=== PATIENT | female | born 1960 | race African-American/Black ===

== ENCOUNTER → 2017-02-02 | Outpatient (CLI) | payer BC ==
[2017-02-02 13:10] LABS: Basophils # (auto) 0 uL; Basophils % (auto) 0.4 % (0.0-2.0); Eosinophils # (auto) 0.1 uL; Eosinophils % (auto) 1.3 % (0.0-7.0); Hematocrit 39.7 % (36.0-46.0); Hemoglobin 12.9 g/dL (12.2-16.2); Lymphocytes # (auto) 2.9 uL; Lymphocytes % (auto) 46.2 % (10.0-50.0); Mean Corpuscular Hemoglobin 28.1 pg (28.0-32.0); Mean Corpuscular Hgb Conc. 32.4 g/dL (32.0-36.0); Mean Corpuscular Volume 86.9 fL (80.0-100.0); Monocytes # (auto) 0.4 uL; Monocytes % (auto) 5.6 % (0.0-12.0); Neutrophils # (auto) 2.9 uL; Neutrophils % (auto) 46.5 % (37.0-80.0); Platelet Count (auto) 332 10^3/uL (140-450); Red Cell Distribution Width 15.1 % (11.6-16.0); White Blood Cell 6.3 10^3/uL (4.4-10.8)
[2017-02-02 13:30] LABS: Albumin 4.4 g/dL (3.4-5.0); BUN/Creatinine Ratio 19.8; Bilirubin, Total 0.4 mg/dL (0.2-1.0); Calcium 9.4 mg/dL (8.5-10.1); Potassium 3.7 mmol/L (3.5-5.1); Total Protein 8.1 g/dL (6.4-8.2)
== END | disposition home or self-care (01) ==
LOC: LAB 12:27
PROVIDERS: ATTEND Internal Medicine
DX: E11.9 Type 2 diabetes mellitus without complications (principal); M65.2 Calcific tendinitis
CPT/HCPCS: 36415; 80053; 80061; 82607; 84439; 84443; 85025; 85652; 86141; 86225; 86235

== ENCOUNTER → 2017-03-15 | Outpatient (CLI) | payer BC ==
[2017-03-15 10:37] LABS: INR 0.92 (0.9-1.15); Partial Thromboplastin Time 26.6 sec (22.64-33.71)
== END | disposition home or self-care (01) ==
LOC: LAB 09:50
PROVIDERS: ATTEND Internal Medicine
DX: R76.8 Other specified abnormal immunological findings in serum (principal); E11.9 Type 2 diabetes mellitus without complications
CPT/HCPCS: 36415; 83036; 85610; 85730; 86431

== ENCOUNTER 2017-06-01 14:24 | Emergency (ER) | payer BC ==
[~2017-06-01] VITALS: Ht 172.7 cm; Wt 77.1 kg
[2017-06-01] MEDS ORDERED: SODIUM CHLORIDE 0.9% 1,000 ML IV ONE (15:12)
[2017-06-01] MEDS ORDERED: KETOROLAC TROMETH 30 MG/ML 1ML VIAL IM ONE (15:15)
[2017-06-01] MEDS ORDERED: ASPirin 81 mg TAB PO ONE (15:15)
[2017-06-01 15:34] LABS: Basophils # (auto) 0 uL; Basophils % (auto) 0.3 % (0.0-2.0); CONDITION Y; Eosinophils # (auto) 0 uL; Eosinophils % (auto) 0.4 % (0.0-7.0); Hematocrit 39.6 % (36.0-46.0); Hemoglobin 13.1 g/dL (12.2-16.2); Lymphocytes # (auto) 2.7 uL; Lymphocytes % (auto) 34.6 % (10.0-50.0); Mean Corpuscular Hemoglobin 28.3 pg (28.0-32.0); Mean Corpuscular Volume 85.6 fL (80.0-100.0); Mean Platelet Volume 7.9 fL (7.4-10.4); Monocytes # (auto) 0.5 uL; Monocytes % (auto) 6.3 % (0.0-12.0); Neutrophils # (auto) 4.5 uL; Neutrophils % (auto) 58.4 % (37.0-80.0); Platelet Count (auto) 337 10^3/uL (140-450); Red Cell Distribution Width 14.8 % (11.6-16.0); White Blood Cell 7.8 10^3/uL (4.4-10.8)
[2017-06-01 15:59] LABS: Albumin 4.1 g/dL (3.4-5.0); Alkaline Phosphatase 76 U/L (45-117); Anion Gap 7 (5-15); Aspartate Aminotransferase 12 U/L (15-37); BUN/Creatinine Ratio 24.1; Bilirubin, Total 0.3 mg/dL (0.2-1.0); Blood Urea Nitrogen 20 mg/dL (7-18); Calcium 9.4 mg/dL (8.5-10.1); Carbon Dioxide 29 mmol/L (21-32); Chloride 105 mmol/L (98-107); GFR African American 92 mL/min; GFR Non-African American 76 mL/min; Glucose 93 mg/dL (74-106); Potassium 3.9 mmol/L (3.5-5.1); Sodium 141 mmol/L (136-145); Total Protein 7.9 g/dL (6.4-8.2)
[2017-06-01] MEDS ORDERED: IOHEXOL 350 MG/ML 100ML IJ ONE (16:09)
[2017-06-01 16:50] VITALS: BP 135/64
== END 2017-06-01 17:40 | disposition home or self-care (01) ==
LOC: ER 14:24
DX: R07.89 Other chest pain (principal); Z88.1 Allergy status to other antibiotic agents
CPT/HCPCS: 36415; 71020; 71275; 80053; 83735; 84484; 85025; 85379; 93005; 94761; 96360; 96372; 99285; J1885; J7030; Q9967

== ENCOUNTER 2017-06-05 17:31 | Inpatient (IN) | payer BC ==
[~2017-06-05] VITALS: Ht 172.7 cm; Wt 77.9 kg
[2017-06-05] MEDS ORDERED: ASPirin 81 mg TAB PO ONE (18:15)
[2017-06-05 18:16] LABS: Basophils # (auto) 0 uL; Basophils % (auto) 0.3 % (0.0-2.0); CONDITION Y; Eosinophils # (auto) 0 uL; Eosinophils % (auto) 0.6 % (0.0-7.0); Hemoglobin 13.1 g/dL (12.2-16.2); Lymphocytes # (auto) 3.5 uL; Lymphocytes % (auto) 40.7 % (10.0-50.0); Mean Corpuscular Hemoglobin 28.4 pg (28.0-32.0); Mean Corpuscular Hgb Conc. 32.8 g/dL (32.0-36.0); Mean Corpuscular Volume 86.7 fL (80.0-100.0); Monocytes # (auto) 0.5 uL; Monocytes % (auto) 5.4 % (0.0-12.0); Neutrophils # (auto) 4.5 uL; Platelet Count (auto) 353 10^3/uL (140-450); Red Cell Distribution Width 14.4 % (11.6-16.0); White Blood Cell 8.5 10^3/uL (4.4-10.8)
[2017-06-05 18:17] LABS: Albumin 4.4 g/dL (3.4-5.0); Anion Gap 8 (5-15); Aspartate Aminotransferase 15 U/L (15-37); Blood Urea Nitrogen 17 mg/dL (7-18); Carbon Dioxide 27 mmol/L (21-32); Chloride 107 mmol/L (98-107); GFR African American 95 mL/min; GFR Non-African American 78 mL/min; Glucose 86 mg/dL (74-106); Magnesium 2.6 mg/dL (1.6-2.6); Sodium 142 mmol/L (136-145)
[2017-06-05 18:22] LABS: Alkaline Phosphatase 82 U/L (45-117); Bilirubin, Total 0.3 mg/dL (0.2-1.0); Total Protein 8.2 g/dL (6.4-8.2)
[2017-06-05 18:47] LABS: INR 0.98 (0.9-1.15); Partial Thromboplastin Time 26.8 sec (22.64-33.71); Prothrombin Time 10.7 sec (9.37-12.3)
[2017-06-05] MEDS ORDERED: KETOROLAC TROMETH 30 MG/ML 1ML VIAL IV ONE (19:45)
[2017-06-05] MEDS ORDERED: MORPHINE SULF INJ 2 MG/ML SYRINGE 1ML IV PRN (20:00)
[2017-06-05] MEDS ORDERED: ONDANSETRON HCL 4 MG/2 ML VIAL IV PRN (20:00)
[2017-06-05] MEDS ORDERED: LORazepam 0.5 MG TAB PO PRN (20:00)
[2017-06-05] MEDS ORDERED: HYDROcodone-ACET 5/325MG TAB PO PRN (20:00)
[2017-06-05] MEDS ORDERED: ACETAMINOPHEN 500 MG TAB PO PRN (20:00)
[2017-06-05] MEDS ORDERED: TEMAZEPAM 15 MG CAP PO PRN (20:15)
[2017-06-05 20:50] LABS: Cholesterol 180 mg/dL (< 200); HDL Cholesterol 61 mg/dL (40-59); LDL Cholesterol 99 mg/dL (< 100); Triglycerides 170 mg/dL (< 150)
[2017-06-05] MEDS: MORPHINE SULF INJ 2 MG/ML SYRINGE 1ML IV PRN (21:14)
[2017-06-05 22:00] VITALS: BP 147/79
[2017-06-05] MEDS: ATORVASTATIN 20 MG TAB PO SCH (22:34)
[2017-06-05 23:52] VITALS: BP 147/79
[2017-06-06 05:00] VITALS: BP 130/67
[2017-06-06 06:21] LABS: Basophils # (auto) 0 uL; Basophils % (auto) 0.6 % (0.0-2.0); CONDITION Y; Eosinophils # (auto) 0.1 uL; Eosinophils % (auto) 1.2 % (0.0-7.0); Hematocrit 39.3 % (36.0-46.0); Hemoglobin 12.9 g/dL (12.2-16.2); Lymphocytes # (auto) 3.1 uL; Lymphocytes % (auto) 43.3 % (10.0-50.0); Mean Corpuscular Hemoglobin 28.6 pg (28.0-32.0); Mean Corpuscular Hgb Conc. 32.8 g/dL (32.0-36.0); Mean Corpuscular Volume 87.1 fL (80.0-100.0); Mean Platelet Volume 7.8 fL (7.4-10.4); Monocytes # (auto) 0.5 uL; Monocytes % (auto) 6.7 % (0.0-12.0); Neutrophils # (auto) 3.5 uL; Neutrophils % (auto) 48.2 % (37.0-80.0); Platelet Count (auto) 312 10^3/uL (140-450); White Blood Cell 7.3 10^3/uL (4.4-10.8)
[2017-06-06 06:40] LABS: Chloride 108 mmol/L (98-107); Sodium 142 mmol/L (136-145)
[2017-06-06 06:49] LABS: Anion Gap 9 (5-15); BUN/Creatinine Ratio 24.4; Blood Urea Nitrogen 19 mg/dL (7-18); Calcium 8.7 mg/dL (8.5-10.1); Carbon Dioxide 25 mmol/L (21-32); GFR African American 99 mL/min; GFR Non-African American 82 mL/min; Glucose 112 mg/dL (74-106)
[2017-06-06 09:00] VITALS: BP 137/68
[2017-06-06] MEDS: MORPHINE SULF INJ 2 MG/ML SYRINGE 1ML IV PRN (09:38)
[2017-06-06 10:45] LABS: Urine Bilirubin Negative (Negative); Urine Blood Negative /uL (Negative); Urine Color Yellow (Yellow); Urine Glucose Normal (Normal); Urine Ketone Negative (Negative); Urine Mucus FEW (None Seen); Urine Nitrite Negative (Negative); Urine RBC 1 /hpf (0 - 4); Urine Squamous Epithelial Cell FEW /hpf (<5); Urine Urobilinogen Normal (Negative); Urine pH 5.5 (5.0-8.0)
[2017-06-06] MEDS ORDERED: BACLOFEN 10 MG TAB PO ONE (11:15)
[2017-06-06] MEDS ORDERED: ALPRAZolam 0.25 MG TAB PO ONE (11:15)
[2017-06-06] MEDS ORDERED: cefTRIAXone 1GM/50ML D5W 50 ML IV ONE (11:15)
[2017-06-06] MEDS: ASPirin-EC 81 mg tab PO SCH (11:17)
[2017-06-06 13:00] VITALS: BP 126/71
[2017-06-06] MEDS: KETOROLAC TROMETH 30 MG/ML 1ML VIAL IV SCH ×3 (13:21→23:41)
[2017-06-06] MEDS: NITROGLYCERIN 0.4 MG SL TAB SL PRN ×3 (16:09→16:20)
[2017-06-06 17:16] VITALS: BP 115/53
[2017-06-06 21:41] VITALS: BP 109/50
[2017-06-06] MEDS: ATORVASTATIN 20 MG TAB PO SCH (21:47)
[2017-06-06] MEDS: ALPRAZolam 0.25 MG TAB PO SCH (21:47)
[2017-06-07 04:48] VITALS: BP 115/62
[2017-06-07] MEDS: KETOROLAC TROMETH 30 MG/ML 1ML VIAL IV SCH ×3 (05:38→18:00)
[2017-06-07] MEDS: MORPHINE SULF INJ 2 MG/ML SYRINGE 1ML IV PRN ×2 (06:30→21:40)
[2017-06-07 08:48] VITALS: BP 131/55
[2017-06-07] MEDS: ASPirin-EC 81 mg tab PO SCH (10:02)
[2017-06-07] MEDS: ALPRAZolam 0.25 MG TAB PO SCH ×2 (10:02→21:39)
[2017-06-07] MEDS ORDERED: ALPRAZolam 0.5 MG TAB PO ONE (11:15)
[2017-06-07] MEDS ORDERED: IOHEXOL 350 MG/ML 100ML IJ ONE (11:37)
[2017-06-07 12:30] VITALS: BP 140/62
[2017-06-07] MEDS: ATORVASTATIN 20 MG TAB PO SCH (21:39)
[2017-06-07 21:52] VITALS: BP 141/64
[2017-06-08 04:55] VITALS: BP 133/63
[2017-06-08] MEDS: KETOROLAC TROMETH 30 MG/ML 1ML VIAL IV SCH ×3 (05:56→12:00)
[2017-06-08 08:35] VITALS: BP 133/78
[2017-06-08] MEDS: ALPRAZolam 0.25 MG TAB PO SCH (10:02)
[2017-06-08] MEDS: MORPHINE SULF INJ 2 MG/ML SYRINGE 1ML IV PRN (10:02)
[2017-06-08] MEDS: ASPirin-EC 81 mg tab PO SCH (10:02)
[2017-06-08 12:02] VITALS: BP 125/72
[2017-06-08 13:06] VITALS: BP 128/72
== END 2017-06-08 18:54 | disposition home or self-care (01) | DRG 313 ==
LOC: ER 17:35 → TELE 17:36 → TELE-WESTW 20:30
PROVIDERS: ADMIT Nurse Practitioner Family; ATTEND Internal Medicine
DX: R07.89 Other chest pain (principal); Z88.1 Allergy status to other antibiotic agents; F41.9 Anxiety disorder, unspecified; Z83.3 Family history of diabetes mellitus
CPT/HCPCS: 36415; 70498; 71010; 80048; 80053; 80061; 81001; 82550; 83735; 84443; 84484; 85025; 85610; 85652; 85730; 93005; 93306; 94761; 96374; J0696; J1885

== ENCOUNTER 2017-10-25 10:49 | Inpatient (IN) | payer BC ==
[~2017-10-25] VITALS: Ht 170.2 cm; Wt 78.2 kg
[2017-10-25] MEDS ORDERED: AZITHROMYCIN 500MG/ 250ML 250 ML IV ONE (11:45)
[2017-10-25] MEDS ORDERED: ALPRAZolam 0.25 MG TAB PO PRN (11:45)
[2017-10-25] MEDS ORDERED: methylPREDNISolone SOD SUCC 40 MG/ML VL IV ONE (11:45)
[2017-10-25] MEDS ORDERED: PANTOPRAZOLE 40 MG TAB PO ONE (11:45)
[2017-10-25] MEDS ORDERED: cefTRIAXone 1GM/10ml IVPUSH 10 ML IV ONE (11:45)
[2017-10-25] MEDS: OSELTAMIVIR 75 MG CAP PO SCH ×2 (13:08→21:46)
[2017-10-25] MEDS ORDERED: ZOLP10TA PO (13:24)
[2017-10-25] MEDS ORDERED: ALPR0.25 PO (13:25)
[2017-10-25 13:26] LABS: Basophils # (auto) 0 uL; Basophils % (auto) 0.2 % (0.0-2.0); Eosinophils # (auto) 0 uL; Hematocrit 37.1 % (36.0-46.0); Hemoglobin 12.1 g/dL (12.2-16.2); Lymphocytes # (auto) 2.4 uL; Lymphocytes % (auto) 45.2 % (10.0-50.0); Mean Corpuscular Hemoglobin 28.3 pg (28.0-32.0); Mean Corpuscular Hgb Conc. 32.7 g/dL (32.0-36.0); Mean Corpuscular Volume 86.6 fL (80.0-100.0); Monocytes # (auto) 0.2 uL; Monocytes % (auto) 3.1 % (0.0-12.0); Neutrophils # (auto) 2.7 uL; Neutrophils % (auto) 51.5 % (37.0-80.0); Nucleated Red Blood Cells % 0.1 %; Platelet Count (auto) 233 10^3/uL (140-450); Red Blood Cells 4.29 10^6/uL (4.0-5.20); Red Cell Distribution Width 14.5 % (11.8-14.3); White Blood Cell 5.3 10^3/uL (4.4-10.8)
[2017-10-25] MEDS: methylPREDNISolone SOD SUCC 40 MG/ML VL IV SCH ×2 (13:51→21:38)
[2017-10-25 14:36] LABS: INR 0.93 (0.9-1.15); Partial Thromboplastin Time 27.9 sec (22.64-33.71); Prothrombin Time 10.1 sec (9.37-12.3)
[2017-10-25 14:37] LABS: Albumin 3.8 g/dL (3.4-5.0); BUN/Creatinine Ratio 18.8; Bilirubin, Total 0.2 mg/dL (0.2-1.0); Calcium 8.4 mg/dL (8.5-10.1); Total Protein 7.4 g/dL (6.4-8.2)
[2017-10-25] MEDS ORDERED: HYDROcodone-ACET 5/325MG TAB PO PRN (15:30)
[2017-10-25] MEDS: ALBUTEROL SULF 2.5 MG/0.5ML(0.5%) NEB SOLN NEB SCH ×2 (15:41→19:09)
[2017-10-25] MEDS: IPRATROPIUM BROM 0.5 MG/2.5ML INH SOL NEB SCH (15:41)
[2017-10-25] MEDS: guaiFENesin 200 MG/10 ML UD PO PRN (15:50)
[2017-10-25] MEDS: ONDANSETRON HCL 4 MG/2 ML VIAL IV PRN ×2 (16:06→21:37)
[2017-10-25 17:03] VITALS: BP 133/88
[2017-10-25 20:00] VITALS: BP 136/57
[2017-10-25] MEDS: ZOLPIDEM TARTRATE 5 MG TAB PO PRN (21:38)
[2017-10-25 22:00] VITALS: BP 136/57
[2017-10-26] MEDS: ALBUTEROL SULF 2.5 MG/0.5ML(0.5%) NEB SOLN NEB SCH ×3 (05:42→14:00)
[2017-10-26] MEDS: IPRATROPIUM BROM 0.5 MG/2.5ML INH SOL NEB SCH ×4 (05:42→14:00)
[2017-10-26 05:43] VITALS: BP 122/69
[2017-10-26] MEDS: methylPREDNISolone SOD SUCC 40 MG/ML VL IV SCH ×2 (06:02→17:42)
[2017-10-26] MEDS: cefTRIAXone 1GM/10ml IVPUSH 10 ML IV SCH (08:42)
[2017-10-26] MEDS: MORPHINE SULFATE 10 MG/ML INJ 1ML SDV IV PRN ×2 (08:43→20:50)
[2017-10-26] MEDS: ONDANSETRON HCL 4 MG/2 ML VIAL IV PRN (08:44)
[2017-10-26 08:50] VITALS: BP 135/68
[2017-10-26] MEDS ORDERED: ALPRAZolam 0.25 MG TAB PO SCH (10:00)
[2017-10-26] MEDS: AZITHROMYCIN 500MG/ 250ML 250 ML IV SCH (10:44)
[2017-10-26] MEDS: PANTOPRAZOLE 40 MG TAB PO SCH (10:44)
[2017-10-26 13:11] VITALS: BP 125/75
[2017-10-26 17:17] VITALS: BP 130/61
[2017-10-26] MEDS ORDERED: SERTRALINE HCL 50 MG TAB PO ONE (18:15)
[2017-10-26] MEDS: LORazepam 2MG/ML-1ML VIAL IV PRN (18:33)
[2017-10-26] MEDS: ZOLPIDEM TARTRATE 5 MG TAB PO PRN (20:55)
[2017-10-26 21:43] VITALS: BP 163/80
[2017-10-27 04:57] VITALS: BP 136/68
[2017-10-27] MEDS: methylPREDNISolone SOD SUCC 40 MG/ML VL IV SCH ×2 (06:25→17:43)
[2017-10-27] MEDS: cefTRIAXone 1GM/10ml IVPUSH 10 ML IV SCH (07:49)
[2017-10-27] MEDS: LORazepam 2MG/ML-1ML VIAL IV PRN ×2 (07:49→16:08)
[2017-10-27 08:12] VITALS: BP 135/75
[2017-10-27] MEDS: PANTOPRAZOLE 40 MG TAB PO SCH (09:19)
[2017-10-27] MEDS: AZITHROMYCIN 500MG/ 250ML 250 ML IV SCH (09:19)
[2017-10-27] MEDS: SERTRALINE HCL 50 MG TAB PO SCH (09:19)
[2017-10-27] MEDS: MORPHINE SULFATE 10 MG/ML INJ 1ML SDV IV PRN ×2 (09:20→15:44)
[2017-10-27] MEDS: ONDANSETRON HCL 4 MG/2 ML VIAL IV PRN ×2 (09:20→15:43)
[2017-10-27] MEDS ORDERED: DEXTROSE (50%) 50ML SYRG IV PRN (10:45)
[2017-10-27] MEDS: DOCUSATE SOD 100 MG CAP PO SCH ×2 (11:22→21:41)
[2017-10-27] MEDS: InsuLIN REG 1unit/0.01ml Soln (100units/ml) SC SCH ×2 (11:22→17:25)
[2017-10-27] MEDS: ACCU-CHEK COMFORT CURVE STRIP VI SCH ×2 (11:22→17:25)
[2017-10-27 12:50] VITALS: BP 157/77
[2017-10-27] MEDS: guaiFENesin 200 MG/10 ML UD PO PRN (15:44)
[2017-10-27 16:07] LABS: Urine Bacteria NONE SEEN /hpf (None Seen); Urine Blood Negative /uL (Negative); Urine Specific Gravity 1.026 (1.001-1.035); Urine WBC 7 /hpf (0 - 5)
[2017-10-27 17:17] VITALS: BP 167/77
[2017-10-27 17:27] VITALS: BP 150/72
[2017-10-27] MEDS: ZOLPIDEM TARTRATE 5 MG TAB PO PRN (21:41)
[2017-10-27 22:00] VITALS: BP 125/62
[2017-10-28] MEDS: InsuLIN REG 1unit/0.01ml Soln (100units/ml) SC SCH ×4 (04:54→17:38)
[2017-10-28] MEDS: ACCU-CHEK COMFORT CURVE STRIP VI SCH ×4 (04:55→17:38)
[2017-10-28] MEDS: methylPREDNISolone SOD SUCC 40 MG/ML VL IV SCH ×2 (04:55→18:15)
[2017-10-28] MEDS: guaiFENesin 200 MG/10 ML UD PO PRN (05:15)
[2017-10-28 07:04] LABS: Calcium 8.3 mg/dL (8.5-10.1); Potassium 4.3 mmol/L (3.5-5.1)
[2017-10-28 07:15] LABS: Basophils # (auto) 0 uL; Basophils % (auto) 0.3 % (0.0-2.0); Eosinophils # (auto) 0 uL; Hematocrit 41.1 % (36.0-46.0); Lymphocytes # (auto) 2.4 uL; Mean Corpuscular Hemoglobin 27.9 pg (28.0-32.0); Mean Corpuscular Hgb Conc. 31.7 g/dL (32.0-36.0); Mean Corpuscular Volume 87.9 fL (80.0-100.0); Monocytes # (auto) 0.5 uL; Monocytes % (auto) 3.6 % (0.0-12.0); Neutrophils # (auto) 10.2 uL; Neutrophils % (auto) 78.1 % (37.0-80.0); Nucleated Red Blood Cells % 0.1 %; Platelet Count (auto) 248 10^3/uL (140-450); Red Blood Cells 4.68 10^6/uL (4.0-5.20); White Blood Cell 13.1 10^3/uL (4.4-10.8)
[2017-10-28] MEDS: cefTRIAXone 1GM/10ml IVPUSH 10 ML IV SCH (09:05)
[2017-10-28] MEDS: LORazepam 2MG/ML-1ML VIAL IV PRN (09:06)
[2017-10-28] MEDS ORDERED: LACTULOSE 20Gm/30ML SOLN PO ONE (09:15)
[2017-10-28 09:25] VITALS: BP 156/92
[2017-10-28] MEDS: ONDANSETRON HCL 4 MG/2 ML VIAL IV PRN ×3 (10:17→22:24)
[2017-10-28] MEDS: MORPHINE SULFATE 10 MG/ML INJ 1ML SDV IV PRN ×4 (10:18→22:23)
[2017-10-28] MEDS: AZITHROMYCIN 500MG/ 250ML 250 ML IV SCH (11:06)
[2017-10-28] MEDS: PANTOPRAZOLE 40 MG TAB PO SCH (11:06)
[2017-10-28] MEDS: SERTRALINE HCL 50 MG TAB PO SCH (11:06)
[2017-10-28] MEDS: DOCUSATE SOD 100 MG CAP PO SCH ×2 (11:06→22:23)
[2017-10-28] MEDS ORDERED: KETOROLAC TROMETH 30 MG/ML 1ML VIAL IV ONE (11:15)
[2017-10-28 13:00] VITALS: BP 147/70
[2017-10-28 17:00] VITALS: BP 140/85
[2017-10-28 22:00] VITALS: BP 150/71
[2017-10-28] MEDS: ZOLPIDEM TARTRATE 5 MG TAB PO PRN (22:24)
[2017-10-29 05:00] VITALS: BP 134/64
[2017-10-29] MEDS: InsuLIN REG 1unit/0.01ml Soln (100units/ml) SC SCH ×3 (06:00→12:00)
[2017-10-29] MEDS: ACCU-CHEK COMFORT CURVE STRIP VI SCH ×3 (06:17→12:00)
[2017-10-29] MEDS: methylPREDNISolone SOD SUCC 40 MG/ML VL IV SCH (06:17)
[2017-10-29 08:00] VITALS: BP 153/71
[2017-10-29 09:00] VITALS: BP 153/71
[2017-10-29] MEDS: cefTRIAXone 1GM/10ml IVPUSH 10 ML IV SCH (09:17)
[2017-10-29] MEDS: SERTRALINE HCL 50 MG TAB PO SCH (09:18)
[2017-10-29] MEDS: DOCUSATE SOD 100 MG CAP PO SCH (09:18)
[2017-10-29] MEDS: PANTOPRAZOLE 40 MG TAB PO SCH (09:18)
[2017-10-29] MEDS: AZITHROMYCIN 500MG/ 250ML 250 ML IV SCH (09:18)
[2017-10-29] MEDS ORDERED: DOCUSATE SOD 100 MG CAP PO ONE (10:15)
[2017-10-29] MEDS ORDERED: LACTULOSE 20Gm/30ML SOLN PO ONE (10:15)
[2017-10-29] MEDS ORDERED: AZITHROMYCIN 250 MG TAB PO ONE (11:25)
[2017-10-29] MEDS ORDERED: LACTULOSE 20Gm/30ML SOLN ONE (11:25)
[2017-10-29 13:00] VITALS: BP 152/77
[2017-10-29 13:58] VITALS: BP 152/77
[2017-10-30] MEDS ORDERED: AZITHROMYCIN 250 MG TAB PO SCH (10:00)
== END 2017-10-29 15:44 | disposition home or self-care (01) | DRG 195 ==
LOC: CENTRAL 10:49
PROVIDERS: ADMIT Internal Medicine; ATTEND Internal Medicine
DX: J18.9 Pneumonia, unspecified organism (principal); E11.9 Type 2 diabetes mellitus without complications; F32.9 Major depressive disorder, single episode, unspecified; F41.9 Anxiety disorder, unspecified; J45.909 Unspecified asthma, uncomplicated; Z79.899 Other long term (current) drug therapy
CPT/HCPCS: 36415; 71046; 80048; 80053; 81001; 82962; 83036; 85025; 85610; 85730; 87400; 94640; J1815; J1885; J2405

== ENCOUNTER 2017-10-30 10:05 | Emergency (ER) | payer BC ==
[~2017-10-30] VITALS: Ht 170.2 cm; Wt 72.6 kg
[~2017-10-30 10:05] MED LIST: ALPR0.25 PO; ZOLP10TA PO
[2017-10-30] MEDS ORDERED: SODIUM CHLORIDE 0.9% 1,000 ML IV ONE (10:30)
[2017-10-30] MEDS ORDERED: LORazepam 2MG/ML-1ML VIAL IV ONE (10:30)
[2017-10-30 11:15] LABS: Hematocrit 45.3 % (36.0-46.0); Hemoglobin 14.8 g/dL (12.2-16.2); Mean Corpuscular Hgb Conc. 32.7 g/dL (32.0-36.0); Mean Corpuscular Volume 85.7 fL (80.0-100.0); Platelet Count (auto) 393 10^3/uL (140-450); Red Blood Cells 5.29 10^6/uL (4.0-5.20); Red Cell Distribution Width 14.4 % (11.8-14.3); White Blood Cell 13.9 10^3/uL (4.4-10.8)
[2017-10-30 11:26] LABS: Alanine Aminotransferase 68 U/L (13-56); Alkaline Phosphatase 63 U/L (45-117); Anion Gap 12 (5-15); Aspartate Aminotransferase 25 U/L (15-37); BUN/Creatinine Ratio 19.3; Band Neutrophils % (manual) 0; Basophils % (manual) 0 (0.0-2.0); Bilirubin, Total 0.5 mg/dL (0.2-1.0); Blast Cells 0; Blood Urea Nitrogen 21 mg/dL (7-18); Carbon Dioxide 24 mmol/L (21-32); Chloride 103 mmol/L (98-107); Eosinophils % (manual) 0 (0-7); GFR African American 67 mL/min; GFR Non-African American 55 mL/min; Glucose 123 mg/dL (74-106); Magnesium 2.6 mg/dL (1.6-2.6); Myelocytes % 0; Potassium 3.4 mmol/L (3.5-5.1); Promyelocytes % 0; Reactive Lymphocytes 0; Sodium 139 mmol/L (136-145)
[2017-10-30 11:57] LABS: Lymphocytes % (manual) 29 (10.0-50.0); Metamyelocytes % 1; Monocytes % (manual) 8 (0-12)
[2017-10-30 13:11] VITALS: BP 132/76
== END 2017-10-30 12:19 | disposition home or self-care (01) ==
LOC: ER 10:05
DX: F41.9 Anxiety disorder, unspecified (principal); J40 Bronchitis, not specified as acute or chronic; Z88.1 Allergy status to other antibiotic agents; Z79.899 Other long term (current) drug therapy
CPT/HCPCS: 36415; 71045; 80053; 83735; 84484; 85007; 85027; 93005; 96361; 96374; 99285; J2060; J7030

== ENCOUNTER → 2018-09-26 | Outpatient (CLI) | payer BC | END | disposition home or self-care (01) | LOC: XYW 08:19 | PROVIDERS: ATTEND Internal Medicine | DX: R42 Dizziness and giddiness (principal) | CPT/HCPCS: 93306 ==

== ENCOUNTER → 2018-11-01 | Outpatient (CLI) | payer BC ==
[2018-11-01 11:09] LABS: Basophils # (auto) 0 uL; Basophils % (auto) 0.5 % (0.0-2.0); Eosinophils # (auto) 0.1 uL; Hematocrit 41.6 % (36.0-46.0); Hemoglobin 13.7 g/dL (12.2-16.2); Lymphocytes # (auto) 3.5 uL; Lymphocytes % (auto) 48.9 % (10.0-50.0); Mean Corpuscular Hemoglobin 28.4 pg (28.0-32.0); Mean Corpuscular Volume 85.8 fL (80.0-100.0); Monocytes # (auto) 0.4 uL; Monocytes % (auto) 5.1 % (0.0-12.0); Neutrophils # (auto) 3.1 uL; Neutrophils % (auto) 43.5 % (37.0-80.0); Nucleated Red Blood Cells % 0.1 %; Platelet Count (auto) 288 10^3/uL (140-450); Red Blood Cells 4.85 10^6/uL (4.0-5.20); Red Cell Distribution Width 14.7 % (11.8-14.3); White Blood Cell 7.1 10^3/uL (4.4-10.8)
[2018-11-01 11:14] LABS: Urine Bacteria NONE SEEN /hpf (None Seen); Urine Blood Negative /uL (Negative); Urine Specific Gravity 1.022 (1.001-1.035); Urine WBC 1 /hpf (0 - 5)
[2018-11-01 11:52] LABS: Cholesterol 176 mg/dL (< 200); HDL Cholesterol 62 mg/dL (40-59); LDL Cholesterol 97 mg/dL (< 100); Triglycerides 112 mg/dL (< 150)
== END | disposition home or self-care (01) ==
LOC: LAB 10:24
PROVIDERS: ATTEND Internal Medicine
DX: I10 Essential (primary) hypertension (principal); R42 Dizziness and giddiness
CPT/HCPCS: 36415; 80061; 81001; 82306; 83036; 84443; 85025

== ENCOUNTER → 2018-11-08 | Outpatient (CLI) | payer BC | END | disposition home or self-care (01) | LOC: LAB 12:46 | PROVIDERS: ATTEND Internal Medicine | DX: I10 Essential (primary) hypertension (principal); R42 Dizziness and giddiness | CPT/HCPCS: 82270 ==

== ENCOUNTER 2019-09-17 17:39 | Emergency (ER) | payer BC, OTHER ==
[~2019-09-17] VITALS: Ht 170.2 cm; Wt 74.8 kg
[2019-09-17] MEDS ORDERED: IBUPROFEN 100MG/5ML ORAL SUSP 100 MG/5 ML UD GT ONE (19:30)
[2019-09-17] MEDS ORDERED: IBUPROFEN 800 MG TAB PO ONE (19:45)
[2019-09-17 19:58] VITALS: BP 164/77
== END 2019-09-17 20:44 | disposition home or self-care (01) ==
LOC: ER 17:39
DX: S83.91XA Sprain of unspecified site of right knee, initial encounter (principal); W22.8XXA Striking against or struck by other objects, initial encounter; Y93.89 Activity, other specified; Y92.69 Other specified industrial and construction area as the place of occurrence of the external cause; Y99.8 Other external cause status
CPT/HCPCS: 73562

== ENCOUNTER 2020-06-23 13:22 | Emergency (ER) | payer BC, OTHER ==
[~2020-06-23] VITALS: Ht 170.2 cm; Wt 77.1 kg
[2020-06-23 13:44] VITALS: BP 152/77
[2020-06-23] MEDS ORDERED: methylPREDNISolone SOD SUCC 125 MG/2 ML VL IM ONE (15:00)
[2020-06-23] MEDS ORDERED: KETOROLAC TROMETH 60MG/2ML VIAL IM ONE (15:00)
== END 2020-06-23 15:36 | disposition home or self-care (01) ==
LOC: ER 13:22
DX: M25.561 Pain in right knee (principal); R22.41 Localized swelling, mass and lump, right lower limb; Z79.899 Other long term (current) drug therapy; Z88.1 Allergy status to other antibiotic agents
CPT/HCPCS: 96372; 99284; J1885; J2930

== ENCOUNTER → 2020-07-19 | Outpatient (CLI) | payer OTHER ==
[2020-07-19 13:10] LABS: Basophils # (auto) 0 10 ^3/uL (0-0.2); Basophils % (auto) 0.5 % (0.0-2.0); Eosinophils # (auto) 0.1 10 ^3/uL (0-0.8); Eosinophils % (auto) 1.2 % (0.0-7.0); Hematocrit 39.4 % (36.0-46.0); Hemoglobin 12.8 g/dL (12.2-16.2); Lymphocytes # (auto) 3.2 10 ^3/uL (0.4-5.4); Lymphocytes % (auto) 46.2 % (10.0-50.0); Mean Corpuscular Hemoglobin 28.2 pg (28.0-32.0); Mean Corpuscular Hgb Conc. 32.6 g/dL (32.0-36.0); Mean Corpuscular Volume 86.6 fL (80.0-100.0); Monocytes # (auto) 0.4 10 ^3/uL (0-1.3); Neutrophils # (auto) 3.2 10 ^3/uL (1.6-8.6); Neutrophils % (auto) 46.1 % (37.0-80.0); Nucleated Red Blood Cells % 0.1 %; Platelet Count (auto) 311 10^3/uL (140-450); Red Blood Cells 4.55 10^6/uL (4.0-5.20); Red Cell Distribution Width 14.7 % (11.8-14.3)
[2020-07-19 13:22] LABS: INR 0.97 (0.9-1.15); Partial Thromboplastin Time 26.8 sec (23.0-31.2)
[2020-07-19 13:39] LABS: Albumin 4.4 g/dL (3.4-5.0); Calcium 9.3 mg/dL (8.5-10.1); Potassium 3.8 mmol/L (3.5-5.1)
[2020-07-19 13:44] LABS: BUN/Creatinine Ratio 19.8; Bilirubin, Total 0.4 mg/dL (0.2-1.0); Total Protein 7.8 g/dL (6.4-8.2)
== END | disposition home or self-care (01) ==
LOC: LAB 12:41
DX: Z01.818 Encounter for other preprocedural examination (principal); Z01.812 Encounter for preprocedural laboratory examination
CPT/HCPCS: 36415; 80053; 83036; 85025; 85610; 85730

== ENCOUNTER 2021-10-10 02:05 | Emergency (ER) | payer BC, OTHER ==
[~2021-10-10] VITALS: Ht 170.2 cm; Wt 75.7 kg
[2021-10-10] MEDS ORDERED: MECLIZINE HCL 25 MG TAB PO ONE (03:15)
[2021-10-10] MEDS ORDERED: ONDANSETRON HCL 4 MG/2 ML VIAL IV ONE (03:15)
[2021-10-10 04:20] LABS: Basophils # (auto) 0.1 10 ^3/uL (0-0.2); Basophils % (auto) 0.7 % (0.0-2.0); Eosinophils # (auto) 0 10 ^3/uL (0-0.8); Hematocrit 40.2 % (36.0-46.0); Hemoglobin 13.2 g/dL (12.2-16.2); Lymphocytes # (auto) 2.1 10 ^3/uL (0.4-5.4); Lymphocytes % (auto) 21.3 % (10.0-50.0); Mean Corpuscular Hemoglobin 27.7 pg (28.0-32.0); Mean Corpuscular Hgb Conc. 32.8 g/dL (32.0-36.0); Mean Corpuscular Volume 84.4 fL (80.0-100.0); Monocytes # (auto) 0.5 10 ^3/uL (0-1.3); Monocytes % (auto) 4.8 % (0.0-12.0); Neutrophils # (auto) 7.2 10 ^3/uL (1.6-8.6); Neutrophils % (auto) 73.2 % (37.0-80.0); Nucleated Red Blood Cells % 0.3 %; Red Blood Cells 4.77 10^6/uL (4.0-5.20); Red Cell Distribution Width 14.4 % (11.8-14.3); White Blood Cell 9.9 10^3/uL (4.4-10.8)
[2021-10-10 04:45] LABS: Calcium 9.8 mg/dL (8.5-10.1); Potassium 3.8 mmol/L (3.5-5.1)
[2021-10-10 04:50] LABS: Bilirubin, Total 0.4 mg/dL (0.2-1.0); Total Protein 7.5 g/dL (6.4-8.2)
[2021-10-10 06:00] VITALS: BP 135/52
[2021-10-10] MEDS ORDERED: METOCLOPRAMIDE HCL 5MG/ml INJ 2ml VIAL IV ONE (09:00)
== END 2021-10-10 11:39 | disposition home or self-care (01) ==
LOC: EDBD 02:05 → ER 02:09
DX: R42 Dizziness and giddiness (principal); Z88.1 Allergy status to other antibiotic agents
CPT/HCPCS: 36415; 70551; 80053; 85025; 93005; 96374; 96375; 99285; J2405; J2765; J8597

== ENCOUNTER → 2022-09-05 | Outpatient (CLI) | payer BC ==
[2022-09-05 08:25] LABS: Lymphocytes % (auto) 45.8 % (10.0-50.0); Neutrophils % (auto) 46.5 % (37.0-80.0); White Blood Cell 10.7 10^3/uL (4.4-10.8)
[2022-09-05 08:26] LABS: Basophils # (auto) 0.1 10 ^3/uL (0-0.2); Basophils % (auto) 0.7 % (0.0-2.0); Eosinophils # (auto) 0.1 10 ^3/uL (0-0.8); Lymphocytes # (auto) 4.9 10 ^3/uL (0.4-5.4); Monocytes # (auto) 0.6 10 ^3/uL (0-1.3); Nucleated Red Blood Cells % 0.3 %
[2022-09-05 08:27] LABS: Hematocrit 43.2 % (36.0-46.0); Hemoglobin 13.8 g/dL (12.2-16.2); Mean Corpuscular Hemoglobin 27.2 pg (28.0-32.0); Mean Corpuscular Hgb Conc. 31.8 g/dL (32.0-36.0); Mean Corpuscular Volume 85.4 fL (80.0-100.0); Red Blood Cells 5.06 10^6/uL (4.0-5.20); Red Cell Distribution Width 14.7 % (11.8-14.3)
[2022-09-05 08:28] LABS: Albumin 4.1 g/dL (3.4-5.0); Calcium 9.6 mg/dL (8.5-10.1); Potassium 4.1 mmol/L (3.5-5.1)
[2022-09-05 08:41] LABS: BUN/Creatinine Ratio 24.2; Bilirubin, Total 0.4 mg/dL (0.2-1.0)
== END | disposition home or self-care (01) ==
LOC: LAB 07:32
PROVIDERS: ATTEND Nurse Practitioner Family
DX: Z00.00 Encounter for general adult medical examination without abnormal findings (principal); E78.5 Hyperlipidemia, unspecified; E11.9 Type 2 diabetes mellitus without complications; I10 Essential (primary) hypertension
CPT/HCPCS: 36415; 80053; 80061; 82306; 83036; 84439; 84443; 85025